=== PATIENT | female | born 1960 | race African-American/Black ===

== ENCOUNTER 2019-08-14 17:06 | Inpatient (IN) ==
[2019-08-14] MEDS ORDERED: MEROPENEM 1,000 MG in SODIUM CHLORIDE 0.9% 100 ML IV STA (17:37)
[2019-08-14] MEDS ORDERED: SODIUM CHLORIDE 0.9% 1,000 ML IV STA (17:37)
[2019-08-14] MEDS ORDERED: ONDANSETRON 4 MG/2 ML VIAL IV STA (17:37)
[2019-08-14] MEDS ORDERED: metroNIDAZOLE INJ 500 MG in PREMIX 1 EACH IV STA (17:37)
[2019-08-14 18:03] LABS: Hemoglobin 10.6 GM/DL (12.0-16.0); Immature Granulocytes % 0.5 %; Immature Granulocytes Absolute 0.01 #; Lymphocytes # 0.3 10*3/uL (1.4-4.0); Lymphocytes % 13.2 % (21.3-54.2); Mean Corpuscular HGB Conc 32.1 GM/DL (32-36); Mean Corpuscular Volume 106.8 FL (87-102); Mean Platelet Volume 9.5 FL (9.6-12.0); Monocytes % 8.4 % (1.7-12.7); Neutrophils % 77.9 % (38.7-73.9); Platelet Count 128 T/CUMM (130-400); Red Blood Count 3.09 MC/CUMM (3.8-5.5); Red Cell Distribution Width 17.5 % (9.3-17.3); White Blood Count 1.9 T/CUMM (4-12)
[2019-08-14 18:18] LABS: Alanine Aminotransferase 15 U/L (13-56); Albumin 3.3 G/DL (3.4-5.0); Alkaline Phosphatase 57 U/L (45-117); Amylase 56 U/L (25-115); Aspartate Amino Transferase 28 U/L (0-37); Blood Urea Nitrogen 11 MG/DL (7-18); Calcium 9.3 MG/DL (8.5-10.1); Estimated Glom Filtration Rate 121 ML/MIN; Ferritin 925.1 ng/ml (8-252); Glucose 94 MG/DL (74-106); Osmolality,Calculated 266.2 MOS/KG (273-304); Total Protein 7.3 G/DL (6.4-8.3); Troponin I < 0.015 NG/ML (0.00-0.045)
[2019-08-14 18:41] LABS: Lymphocytes 6 % (20-55); Segmented Neutrophils 88 % (50-85); Total Cells Counted 100
[2019-08-14 18:42] LABS: Microcytosis 1+; Platelet Estimate Normal; Spherocytes Few; Tear Drop Cells 1+
[2019-08-14] MEDS ORDERED: GLUCAGON 1 MG VIAL IM PRN (19:45)
[2019-08-14] MEDS ORDERED: DEXTROSE 50% 25 GM/50 ML VIAL IV PRN (19:45)
[2019-08-14] MEDS ORDERED: MORPHINE 4 MG/1 ML VIAL IV SCH (20:00)
[2019-08-14 21:37] LABS: Apearance,Urine CLEAR (Clear); Bilirubin,Urine Negative (Negative); Blood, Urine Negative (Negative); Glucose,Urine (UA) Negative (Negative); Ketones,Urine 5 mg/dL (Negative); Nitrite,Urine Negative (Negative); Protein,Urine Negative; RBC,Urine 1 /HPF (0-4); Squamous Epithelial Cell,Urine Occasional /HPF (0-10); Urine Color Yellow (Yellow); Urine Specific Gravity 1.055 (1.001-1.035); Urine Urobilinogen < 2.0 EU/DL (0.2-1.0); WBC,Urine 1 /HPF (0-6)
[2019-08-14] MEDS: MORPHINE 4 MG/1 ML VIAL IV PRN (22:56)
[2019-08-15] MEDS: MEROPENEM 500 MG in SODIUM CHLORIDE 0.9% 100 ML IV SCH ×5 (00:32→23:49)
[2019-08-15] MEDS: metroNIDAZOLE INJ 500 MG in PREMIX 1 EACH IV SCH ×3 (01:16→15:26)
[2019-08-15] MEDS: DEXTROSE 5% NACL 0.45% 1,000 ML IV SCH ×4 (01:43→21:34)
[2019-08-15] MEDS: MORPHINE 4 MG/1 ML VIAL IV PRN ×3 (05:21→18:28)
[2019-08-15 06:20] LABS: Hematocrit 31.1 VOL% (35.7-47.0); Immature Granulocytes % 0.6 %; Immature Granulocytes Absolute 0.01 #; Lymphocytes # 0.1 10*3/uL (1.4-4.0); Lymphocytes % 8.4 % (21.3-54.2); Mean Corpuscular HGB Conc 32.2 GM/DL (32-36); Mean Corpuscular Volume 105.8 FL (87-102); Mean Platelet Volume 9.3 FL (9.6-12.0); Monocytes % 6.5 % (1.7-12.7); Neutrophils % 84.5 % (38.7-73.9); Platelet Count 116 T/CUMM (130-400); Red Blood Count 2.94 MC/CUMM (3.8-5.5); Red Cell Distribution Width 17.2 % (9.3-17.3); White Blood Count 1.6 T/CUMM (4-12)
[2019-08-15 06:40] LABS: Band Neutrophils 6 % (0-10); Lymphocytes 9 % (20-55); Segmented Neutrophils 79 % (50-85); Total Cells Counted 100
[2019-08-15 06:41] LABS: Anisocytosis 1+; Hypochromasia 1+; Ovalocytes Few; Tear Drop Cells Few
[2019-08-15 06:49] LABS: Albumin 2.8 G/DL (3.4-5.0); Bilirubin,Total 1.1 MG/DL (0.2-1.0); Calcium 8.7 MG/DL (8.5-10.1); Osmolality,Calculated 275.5 MOS/KG (273-304); Total Protein 6.4 G/DL (6.4-8.3)
[2019-08-15] MEDS: PANTOPRAZOLE 40 MG VIAL IV SCH (08:52)
[2019-08-15] MEDS: ENOXAPARIN 80 MG/0.8 ML SYRINGE SUBCUT SCH ×2 (08:52→20:04)
[2019-08-15] MEDS: ONDANSETRON 4 MG/2 ML VIAL IV PRN ×2 (12:10→18:28)
[2019-08-15] MEDS: FILGRASTIM-SNDZ 300 MCG/0.5 ML SYRINGE SUBCUT SCH (16:20)
[2019-08-16] MEDS: metroNIDAZOLE INJ 500 MG in PREMIX 1 EACH IV SCH ×3 (00:49→16:39)
[2019-08-16] MEDS: MEROPENEM 500 MG in SODIUM CHLORIDE 0.9% 100 ML IV SCH ×4 (05:32→23:37)
[2019-08-16] MEDS: ONDANSETRON 4 MG/2 ML VIAL IV PRN ×3 (06:36→21:56)
[2019-08-16] MEDS: MORPHINE 4 MG/1 ML VIAL IV PRN ×3 (06:37→21:57)
[2019-08-16] MEDS: DEXTROSE 5% NACL 0.45% 1,000 ML IV SCH ×3 (07:30→23:42)
[2019-08-16 08:04] LABS: Calcium 7.8 MG/DL (8.5-10.1); Osmolality,Calculated 276.4 MOS/KG (273-304)
[2019-08-16 08:15] LABS: Basophils # 0.1 10*3/uL (0.0-0.2); Basophils % 2.3 % (0.0-0.8); Hematocrit 27.5 VOL% (35.7-47.0); Hemoglobin 9.1 GM/DL (12.0-16.0); Immature Granulocytes % 6.1 %; Immature Granulocytes Absolute 0.16 #; Lymphocytes # 0.2 10*3/uL (1.4-4.0); Lymphocytes % 6.1 % (21.3-54.2); Mean Corpuscular HGB Conc 33.1 GM/DL (32-36); Mean Corpuscular Volume 105.4 FL (87-102); Mean Platelet Volume 11.1 FL (9.6-12.0); Monocytes % 2.3 % (1.7-12.7); Neutrophils % 83.2 % (38.7-73.9); Platelet Count 116 T/CUMM (130-400); Red Blood Count 2.61 MC/CUMM (3.8-5.5); Red Cell Distribution Width 16.8 % (9.3-17.3); White Blood Count 2.6 T/CUMM (4-12)
[2019-08-16 08:37] LABS: Band Neutrophils 5 % (0-10); Lymphocytes 5 % (20-55); Segmented Neutrophils 89 % (50-85); Total Cells Counted 100
[2019-08-16 08:38] LABS: Hypochromasia Slight
[2019-08-16] MEDS: ENOXAPARIN 80 MG/0.8 ML SYRINGE SUBCUT SCH ×2 (08:39→21:56)
[2019-08-16] MEDS: PANTOPRAZOLE 40 MG VIAL IV SCH (08:39)
[2019-08-16] MEDS ORDERED: MAGNESIUM SULF RIDER 2 GM in PREMIX 1 EACH IV ONE (09:03)
[2019-08-16] MEDS: FILGRASTIM-SNDZ 300 MCG/0.5 ML SYRINGE SUBCUT SCH (09:54)
[2019-08-16] MEDS: POTASSIUM CHLORIDE RIDER 10 MEQ in PREMIX 1 EACH IV PRN ×5 (11:46→21:58)
[2019-08-16] MEDS: COLLAGENASE OINT 30 GM TUBE TOP SCH (13:35)
[2019-08-17] MEDS: metroNIDAZOLE INJ 500 MG in PREMIX 1 EACH IV SCH ×3 (00:54→15:46)
[2019-08-17] MEDS: POTASSIUM CHLORIDE RIDER 10 MEQ in PREMIX 1 EACH IV PRN ×5 (02:24→07:05)
[2019-08-17] MEDS: ONDANSETRON 4 MG/2 ML VIAL IV PRN ×2 (04:37→19:08)
[2019-08-17] MEDS: MORPHINE 4 MG/1 ML VIAL IV PRN ×3 (04:39→19:09)
[2019-08-17] MEDS: MEROPENEM 500 MG in SODIUM CHLORIDE 0.9% 100 ML IV SCH ×4 (05:31→23:17)
[2019-08-17] MEDS: DEXTROSE 5% NACL 0.45% 1,000 ML IV SCH ×3 (05:32→19:55)
[2019-08-17 07:02] LABS: Basophils % 0.4 % (0.0-0.8); Hematocrit 26.5 VOL% (35.7-47.0); Hemoglobin 8.7 GM/DL (12.0-16.0); Immature Granulocytes % 15.7 %; Immature Granulocytes Absolute 0.39 #; Lymphocytes # 0.2 10*3/uL (1.4-4.0); Lymphocytes % 7.3 % (21.3-54.2); Mean Corpuscular HGB Conc 32.8 GM/DL (32-36); Mean Corpuscular Volume 104.7 FL (87-102); Mean Platelet Volume 10.3 FL (9.6-12.0); Monocytes % 2.4 % (1.7-12.7); Neutrophils % 74.2 % (38.7-73.9); Red Blood Count 2.53 MC/CUMM (3.8-5.5); Red Cell Distribution Width 16.7 % (9.3-17.3); White Blood Count 2.5 T/CUMM (4-12)
[2019-08-17 07:16] LABS: Platelet Count 93 T/CUMM (130-400)
[2019-08-17 07:48] LABS: Band Neutrophils 9 % (0-10); Lymphocytes 3 % (20-55); Segmented Neutrophils 86 % (50-85); Total Cells Counted 100
[2019-08-17 07:49] LABS: Anisocytosis 1+; Poikilocytosis 1+; Tear Drop Cells Few
[2019-08-17 07:50] LABS: Ovalocytes 1+; Platelet Estimate Decreased
[2019-08-17 08:10] LABS: Calcium 7.7 MG/DL (8.5-10.1); Osmolality,Calculated 271.5 MOS/KG (273-304)
[2019-08-17] MEDS: ENOXAPARIN 80 MG/0.8 ML SYRINGE SUBCUT SCH ×2 (09:43→21:11)
[2019-08-17] MEDS: FILGRASTIM-SNDZ 300 MCG/0.5 ML SYRINGE SUBCUT SCH (09:44)
[2019-08-17] MEDS: PANTOPRAZOLE 40 MG VIAL IV SCH (09:44)
[2019-08-17] MEDS: COLLAGENASE OINT 30 GM TUBE TOP SCH (09:45)
[2019-08-18] MEDS: metroNIDAZOLE INJ 500 MG in PREMIX 1 EACH IV SCH ×3 (00:32→16:50)
[2019-08-18] MEDS: MEROPENEM 500 MG in SODIUM CHLORIDE 0.9% 100 ML IV SCH ×3 (05:16→19:02)
[2019-08-18] MEDS: DEXTROSE 5% NACL 0.45% 1,000 ML IV SCH ×2 (05:27→12:49)
[2019-08-18 06:19] LABS: Basophils % 0.7 % (0.0-0.8); Hematocrit 25.2 VOL% (35.7-47.0); Hemoglobin 8.5 GM/DL (12.0-16.0); Immature Granulocytes % 11.6 %; Immature Granulocytes Absolute 0.17 #; Lymphocytes # 0.2 10*3/uL (1.4-4.0); Lymphocytes % 12.3 % (21.3-54.2); Mean Corpuscular HGB Conc 33.7 GM/DL (32-36); Mean Corpuscular Volume 103.3 FL (87-102); Mean Platelet Volume 11.9 FL (9.6-12.0); Monocytes % 6.8 % (1.7-12.7); Neutrophils % 68.6 % (38.7-73.9); Red Blood Count 2.44 MC/CUMM (3.8-5.5); Red Cell Distribution Width 16.6 % (9.3-17.3); White Blood Count 1.5 T/CUMM (4-12)
[2019-08-18 06:20] LABS: Platelet Count 89 T/CUMM (130-400)
[2019-08-18 06:36] LABS: Calcium 7.5 MG/DL (8.5-10.1); Osmolality,Calculated 276.3 MOS/KG (273-304)
[2019-08-18] MEDS: POTASSIUM CHLORIDE RIDER 10 MEQ in PREMIX 1 EACH IV PRN ×8 (07:15→23:11)
[2019-08-18 07:21] LABS: Acanthocytes Few; Anisocytosis 2+; Band Neutrophils 20 % (0-10); Hypochromasia 2+; Lymphocytes 8 % (20-55); Macrocytosis 2+; Metamyelocytes 2 %; Ovalocytes 1+; Platelet Estimate Decreased; Segmented Neutrophils 66 % (50-85); Total Cells Counted 100
[2019-08-18 07:22] LABS: Schistocytes Few
[2019-08-18] MEDS: FILGRASTIM-SNDZ 300 MCG/0.5 ML SYRINGE SUBCUT SCH (08:16)
[2019-08-18] MEDS: PANTOPRAZOLE 40 MG VIAL IV SCH (08:16)
[2019-08-18] MEDS: COLLAGENASE OINT 30 GM TUBE TOP SCH (08:17)
[2019-08-18] MEDS: ENOXAPARIN 80 MG/0.8 ML SYRINGE SUBCUT SCH ×2 (08:17→20:49)
[2019-08-18] MEDS: oxyCODONE/ACETAMINOPHEN 5-325 MG TABLET PO PRN (19:03)
[2019-08-19] MEDS: MEROPENEM 500 MG in SODIUM CHLORIDE 0.9% 100 ML IV SCH ×4 (00:12→17:15)
[2019-08-19] MEDS: metroNIDAZOLE INJ 500 MG in PREMIX 1 EACH IV SCH ×2 (00:47→11:24)
[2019-08-19] MEDS: DEXTROSE 5% NACL 0.45% 1,000 ML IV SCH ×2 (00:50→05:27)
[2019-08-19] MEDS: ONDANSETRON 4 MG/2 ML VIAL IV PRN ×2 (00:59→17:19)
[2019-08-19] MEDS: MORPHINE 4 MG/1 ML VIAL IV PRN ×4 (01:00→23:18)
[2019-08-19 04:40] LABS: Basophils % 1.1 % (0.0-0.8); Hemoglobin 8.1 GM/DL (12.0-16.0); Immature Granulocytes % 15.6 %; Immature Granulocytes Absolute 0.14 #; Lymphocytes # 0.3 10*3/uL (1.4-4.0); Lymphocytes % 32.2 % (21.3-54.2); Mean Corpuscular HGB Conc 33.8 GM/DL (32-36); Mean Corpuscular Volume 102.6 FL (87-102); Mean Platelet Volume 12.5 FL (9.6-12.0); Monocytes % 13.3 % (1.7-12.7); NRBC # 0.05 10*3/uL; Neutrophils % 37.8 % (38.7-73.9); Red Blood Count 2.34 MC/CUMM (3.8-5.5); Red Cell Distribution Width 17.1 % (9.3-17.3)
[2019-08-19 04:44] LABS: Platelet Count 76 T/CUMM (130-400)
[2019-08-19 04:47] LABS: White Blood Count 0.9 T/CUMM (4-12)
[2019-08-19 05:31] LABS: Anisocytosis 1+; Band Neutrophils 4 % (0-10); Lymphocytes 40 % (20-55); Macrocytosis 1+; Nucleated Red Blood Cells 1 (0-5); Segmented Neutrophils 48 % (50-85); Total Cells Counted 100
[2019-08-19 05:32] LABS: Hypochromasia 1+; Ovalocytes 1+; Platelet Estimate Decreased; Tear Drop Cells Few
[2019-08-19 05:40] LABS: Calcium 7.6 MG/DL (8.5-10.1)
[2019-08-19] MEDS: POTASSIUM CHLORIDE RIDER 10 MEQ in PREMIX 1 EACH IV PRN ×2 (06:18→10:53)
[2019-08-19] MEDS ORDERED: FUROSEMIDE 20 MG/2 ML VIAL IV ONE (07:45)
[2019-08-19] MEDS: FILGRASTIM-SNDZ 300 MCG/0.5 ML SYRINGE SUBCUT SCH (10:47)
[2019-08-19] MEDS: PANTOPRAZOLE 40 MG VIAL IV SCH (10:50)
[2019-08-19] MEDS: ENOXAPARIN 80 MG/0.8 ML SYRINGE SUBCUT SCH ×2 (10:50→23:16)
[2019-08-19] MEDS: COLLAGENASE OINT 30 GM TUBE TOP SCH (10:50)
[2019-08-20] MEDS: MEROPENEM 500 MG in SODIUM CHLORIDE 0.9% 100 ML IV SCH ×4 (01:35→17:52)
[2019-08-20 05:59] LABS: Basophils % 0.6 % (0.0-0.8); Hematocrit 25.5 VOL% (35.7-47.0); Hemoglobin 8.4 GM/DL (12.0-16.0); Immature Granulocytes Absolute 0.14 #; Lymphocytes # 0.4 10*3/uL (1.4-4.0); Lymphocytes % 21.1 % (21.3-54.2); Mean Corpuscular HGB Conc 32.9 GM/DL (32-36); Mean Corpuscular Volume 104.1 FL (87-102); Mean Platelet Volume 10.5 FL (9.6-12.0); Monocytes % 15.4 % (1.7-12.7); NRBC # 0.17 10*3/uL; Neutrophils % 54.9 % (38.7-73.9); Red Blood Count 2.45 MC/CUMM (3.8-5.5); Red Cell Distribution Width 17.2 % (9.3-17.3); White Blood Count 1.8 T/CUMM (4-12)
[2019-08-20 06:01] LABS: Platelet Count 64 T/CUMM (130-400)
[2019-08-20 06:35] LABS: Calcium 7.7 MG/DL (8.5-10.1); Osmolality,Calculated 276.3 MOS/KG (273-304)
[2019-08-20] MEDS ORDERED: MAGNESIUM SULF RIDER 4 GM in PREMIX 1 EACH IV PRN (07:34)
[2019-08-20] MEDS ORDERED: MAGNESIUM SULF RIDER 2 GM in PREMIX 1 EACH IV PRN (07:34)
[2019-08-20] MEDS ORDERED: POTASSIUM CHLORIDE RIDER 10 MEQ in PREMIX 1 EACH IV PRN (07:36)
[2019-08-20 07:49] LABS: Band Neutrophils 3 % (0-10); Hypochromasia 1+; Lymphocytes 33 % (20-55); Nucleated Red Blood Cells 10 (0-5); Platelet Estimate Decreased; Segmented Neutrophils 50 % (50-85); Total Cells Counted 100
[2019-08-20 07:50] LABS: Elliptocytes Few; Microcytosis Slight
[2019-08-20] MEDS: FILGRASTIM-SNDZ 300 MCG/0.5 ML SYRINGE SUBCUT SCH (08:38)
[2019-08-20] MEDS: PANTOPRAZOLE 40 MG VIAL IV SCH (08:39)
[2019-08-20] MEDS: COLLAGENASE OINT 30 GM TUBE TOP SCH (08:45)
[2019-08-20] MEDS: POTASSIUM CHLORIDE RIDER 20 MEQ in PREMIX 1 EACH IV PRN ×2 (13:30→15:51)
[2019-08-20] MEDS: MORPHINE 4 MG/1 ML VIAL IV PRN ×2 (15:52→22:03)
[2019-08-20] MEDS ORDERED: MAGNESIUM HYDROXIDE SUSP 30 ML UDCUP PO PRN (18:00)
[2019-08-20] MEDS: ONDANSETRON 4 MG/2 ML VIAL IV PRN (22:02)
[2019-08-21] MEDS: oxyCODONE/ACETAMINOPHEN 5-325 MG TABLET PO PRN (00:25)
[2019-08-21] MEDS: MEROPENEM 500 MG in SODIUM CHLORIDE 0.9% 100 ML IV SCH ×2 (00:27→05:23)
[2019-08-21 06:03] LABS: Eosinophils % 0.3 % (0.00-10.9); Hematocrit 24.9 VOL% (35.7-47.0); Hemoglobin 8.2 GM/DL (12.0-16.0); Immature Granulocytes % 13.2 %; Immature Granulocytes Absolute 0.51 #; Lymphocytes # 0.4 10*3/uL (1.4-4.0); Lymphocytes % 10.6 % (21.3-54.2); Mean Corpuscular HGB Conc 32.9 GM/DL (32-36); Mean Corpuscular Volume 104.6 FL (87-102); Monocytes % 9.8 % (1.7-12.7); NRBC # 0.18 10*3/uL; Neutrophils % 65.1 % (38.7-73.9); Red Blood Count 2.38 MC/CUMM (3.8-5.5); Red Cell Distribution Width 17.8 % (9.3-17.3); White Blood Count 3.9 T/CUMM (4-12)
[2019-08-21 06:05] LABS: Platelet Count 49 T/CUMM (130-400)
[2019-08-21 06:19] LABS: Calcium 7.8 MG/DL (8.5-10.1)
[2019-08-21 06:23] LABS: Band Neutrophils 6 % (0-10); Hypochromasia 1+; Lymphocytes 16 % (20-55); Nucleated Red Blood Cells 2 (0-5); Ovalocytes Slight; Platelet Estimate Decreased; Segmented Neutrophils 74 % (50-85); Total Cells Counted 100
[2019-08-21 06:24] LABS: Microcytosis Slight
[2019-08-21 08:23] VITALS: BP 110/76
[2019-08-21] MEDS: PANTOPRAZOLE 40 MG VIAL IV SCH (09:08)
[2019-08-21] MEDS: FILGRASTIM-SNDZ 300 MCG/0.5 ML SYRINGE SUBCUT SCH (09:09)
[2019-08-21] MEDS: COLLAGENASE OINT 30 GM TUBE TOP SCH (09:09)
[2019-08-21] MEDS ORDERED: HEPARIN LOCK FLUSH 500 UNIT/5 ML SYRINGE IV ONE (09:22)
== END 2019-08-21 11:47 | disposition home or self-care (01) | DRG 388 ==
LOC: N.ED 17:06 → N.EDINP 19:45 → N.3E 21:50 → N.4E 08-19 13:32
PROVIDERS: ADMIT Internal Medicine; ATTEND Internal Medicine

== ENCOUNTER 2021-02-13 19:55 | Inpatient (IN) ==
[2021-02-13] MEDS ORDERED: SODIUM CHLORIDE 0.9% 1,000 ML IV STA (20:31)
[2021-02-13 21:24] LABS: Basophils % 0.3 % (0.0-0.8); Eosinophils % 0.6 % (0.00-10.9); Hematocrit 29.6 VOL% (35.7-47.0); Hemoglobin 9.8 GM/DL (12.0-16.0); Immature Granulocytes % 2.3 %; Immature Granulocytes Absolute 0.16 #; Lymphocytes # 0.8 10*3/uL (1.4-4.0); Mean Corpuscular HGB Conc 33.1 GM/DL (32-36); NRBC # 0.22 10*3/uL; Neutrophils % 73.8 % (38.7-73.9); Red Blood Count 3.15 MC/CUMM (3.8-5.5); Red Cell Distribution Width 28.5 % (9.3-17.3); White Blood Count 6.8 T/CUMM (4-12)
[2021-02-13 21:27] LABS: Platelet Count 114 T/CUMM (130-400)
[2021-02-13 21:33] LABS: INR 1.4; PT Patient Result 14.9 SECS (10.5-12.0)
[2021-02-13 21:43] LABS: Lactic Acid 2.8 MMOL/L (0.4-2.0)
[2021-02-13 21:48] LABS: Anisocytosis 2+; Burr Cells Few; Elliptocytes Few; Macrocytosis 2+; Microcytosis 2+; Polychromasia 1+; Target Cells 2+
[2021-02-13 21:49] LABS: Platelet Estimate Adequate; Poikilocytosis 1+; Schistocytes 1+
[2021-02-13 21:50] LABS: Albumin 1.5 G/DL (3.4-5.0); Bilirubin,Total 7.4 MG/DL (0.20-1.00); Calcium 8.4 MG/DL (8.5-10.1); Osmolality,Calculated 277.8 MOS/KG (273-304); Potassium 4.1 MMOL/L (3.5-5.1); Total Protein 5.9 G/DL (6.4-8.2)
[2021-02-13 22:14] LABS: Bacteria,Urine Occasional /HPF (Few); Blood, Urine Negative (Negative); Glucose,Urine (UA) Negative (Negative); Ketones,Urine Negative (Negative); Mucus,Urine Occasional /LPF (Occasional); Nitrite,Urine Negative (Negative); Protein,Urine 30 MG/DL; RBC,Urine <1 /HPF (0-4); Squamous Epithelial Cell,Urine Occasional /HPF (0-10); Urine Appearance CLEAR (Clear); Urine Color Amber (Yellow); Urine Specific Gravity 1.025 (1.001-1.035)
[2021-02-13 22:15] LABS: Bilirubin,Urine Moderate mg/dL (Negative)
[2021-02-13] MEDS ORDERED: VANCOMYCIN INJ 1,000 MG in SODIUM CHLORIDE 0.9% 250 ML IV STA (23:28)
[2021-02-13] MEDS ORDERED: PIPERACILLIN/TAZOBACTAM 3,375 MG in SODIUM CHLORIDE 0.9% 100 ML IV STA (23:28)
[2021-02-14] MEDS ORDERED: GLUCAGON 1 MG VIAL IM PRN (03:00)
[2021-02-14] MEDS ORDERED: DEXTROSE 50% 25 GM/50 ML SYRINGE IV PRN (03:00)
[2021-02-14] MEDS ORDERED: ONDANSETRON 4 MG/2 ML VIAL IV PRN (03:08)
[2021-02-14] MEDS ORDERED: PROMETHAZINE 25 MG/1 ML VIAL IV PRN (03:08)
[2021-02-14] MEDS: HYDROmorphone 2 MG/1 ML VIAL IV PRN ×3 (03:17→19:09)
[2021-02-14] MEDS ORDERED: ALBUMIN 25% 25 GM/100 ML VIAL IV ONE (04:30)
[2021-02-14 05:50] LABS: Basophils % 0.1 % (0.0-0.8); Eosinophils # 0.1 10*3/uL (0.0-0.87); Eosinophils % 0.8 % (0.00-10.9); Hematocrit 24.2 VOL% (35.7-47.0); Hemoglobin 8.1 GM/DL (12.0-16.0); Immature Granulocytes % 2.1 %; Immature Granulocytes Absolute 0.15 #; Lymphocytes # 0.8 10*3/uL (1.4-4.0); Lymphocytes % 10.7 % (21.3-54.2); Mean Corpuscular HGB Conc 33.5 GM/DL (32-36); Mean Corpuscular Volume 94.2 FL (87-102); Mean Platelet Volume 11.6 FL (9.6-12.0); Monocytes % 13.5 % (1.7-12.7); NRBC # 0.14 10*3/uL; Neutrophils % 72.8 % (38.7-73.9); Red Blood Count 2.57 MC/CUMM (3.8-5.5); Red Cell Distribution Width 28.3 % (9.3-17.3); White Blood Count 7.1 T/CUMM (4-12)
[2021-02-14 06:04] LABS: Platelet Count 97 T/CUMM (130-400)
[2021-02-14 06:29] LABS: Hypochromia 1+; Ovalocytes Slight; Platelet Estimate Decreased; Target Cells Slight
[2021-02-14 06:30] LABS: Microcytosis 1+
[2021-02-14 06:37] LABS: Albumin 1.5 G/DL (3.4-5.0); Bilirubin,Total 7.5 MG/DL (0.20-1.00); Calcium 7.8 MG/DL (8.5-10.1); Osmolality,Calculated 280.4 MOS/KG (273-304); Potassium 4.1 MMOL/L (3.5-5.1); Total Protein 5.4 G/DL (6.4-8.2)
[2021-02-14] MEDS: LEVALBUTEROL 1.25 MG/3 ML NEB RESP TX SCH ×3 (07:03→19:53)
[2021-02-14] MEDS: IPRATROPIUM 500 MCG/2.5 ML NEB RESP TX SCH ×3 (07:03→19:53)
[2021-02-14] MEDS: PIPERACILLIN/TAZOBACTAM 3,375 MG in SODIUM CHLORIDE 0.9% 100 ML IV SCH ×2 (08:18→17:27)
[2021-02-14] MEDS: PANTOPRAZOLE 40 MG VIAL IV SCH (11:19)
[2021-02-14] MEDS: VANCOMYCIN INJ 1,250 MG in SODIUM CHLORIDE 0.9% 250 ML IV SCH (13:18)
[2021-02-15] MEDS: VANCOMYCIN INJ 1,250 MG in SODIUM CHLORIDE 0.9% 250 ML IV SCH (00:01)
[2021-02-15] MEDS: IPRATROPIUM 500 MCG/2.5 ML NEB RESP TX SCH ×4 (00:05→19:18)
[2021-02-15] MEDS: LEVALBUTEROL 1.25 MG/3 ML NEB RESP TX SCH ×4 (00:06→19:18)
[2021-02-15] MEDS: PIPERACILLIN/TAZOBACTAM 3,375 MG in SODIUM CHLORIDE 0.9% 100 ML IV SCH ×2 (01:18→08:29)
[2021-02-15] MEDS: PANTOPRAZOLE 40 MG VIAL IV SCH (08:29)
[2021-02-15] MEDS: HYDROmorphone 2 MG/1 ML VIAL IV PRN ×3 (08:29→19:33)
[2021-02-15] MEDS ORDERED: cefTRIAXone 1,000 MG in SODIUM CHLORIDE 0.9% 100 ML IV ONE (15:12)
[2021-02-16] MEDS: LEVALBUTEROL 1.25 MG/3 ML NEB RESP TX SCH ×2 (01:32→07:00)
[2021-02-16] MEDS: IPRATROPIUM 500 MCG/2.5 ML NEB RESP TX SCH ×2 (01:32→07:00)
[2021-02-16] MEDS: HYDROmorphone 2 MG/1 ML VIAL IV PRN ×2 (03:13→13:47)
[2021-02-16] MEDS ORDERED: cefTRIAXone 1,000 MG in SODIUM CHLORIDE 0.9% 100 ML IV ONE (08:00)
[2021-02-16] MEDS: PANTOPRAZOLE 40 MG VIAL IV SCH (08:11)
[2021-02-16] MEDS ORDERED: LIDOCAINE 2% 5 ML VIAL ONE (09:53)
[2021-02-16] MEDS ORDERED: ROCURONIUM 50 MG/5 ML VIAL IV ONE (09:53)
[2021-02-16] MEDS ORDERED: fentaNYL 100 MCG/2 ML VIAL ONE (09:53)
[2021-02-16] MEDS ORDERED: MIDAZOLAM 2 MG/2 ML VIAL ONE (09:53)
[2021-02-16] MEDS ORDERED: SUCCINYLCHOLINE 200 MG/10 ML VIAL ONE (09:53)
[2021-02-16] MEDS ORDERED: propofoL 200 MG/20 ML VIAL IV ONE (09:53)
[2021-02-16] MEDS ORDERED: ONDANSETRON 4 MG/2 ML VIAL ONE (09:53)
[2021-02-16] MEDS ORDERED: LACTATED RINGERS 1,000 ML IV SCH (10:00)
[2021-02-16] MEDS ORDERED: SEVOFLURANE 1 UNIT/15 MINUTE INH ONE (10:24)
[2021-02-16] MEDS ORDERED: LEVALBUTEROL 1.25 MG/3 ML NEB RESP TX PRN (10:30)
[2021-02-16 11:42] VITALS: BP 127/77
== END 2021-02-16 16:20 | disposition home or self-care (01) | DRG 435 ==
LOC: EDBD → EDUNIT# → N.ED 19:55 → SUATTDRO 02-14 03:01 → N.EDINP 02-14 03:01 → N.3E 02-14 03:35
PROVIDERS: ADMIT Internal Medicine; ATTEND Internal Medicine